=== PATIENT | female | born 1965 | race Caucasian/White ===

== ENCOUNTER → 2023-04-11 | Emergency (ER) | payer OTHER ==
[~2023-04-11] MED LIST: ACETAMINOPHEN 1000 MG/100 ML 100 ML IV ONE; CEPHALEXIN500 MG PO; Docusate Sodium PO; FLUMAZENIL 0.5MG/ 5ML VIAL ONE; LISINOPRIL10 MG PO; METRONIDAZOLE500 MG PO; SUGAMMADEX SODIUM 200 MG/2 ML VIAL IV ONE; TAMOXIFEN CITRA10 MG PO; TYLENOL325 MG PO; ULTRAM 50MG50 MG PO
== END | disposition home or self-care (01) ==
LOC: ER 12:51
DX: K80.20 Calculus of gallbladder without cholecystitis without obstruction (principal)